=== PATIENT | male | born 1930 | race Caucasian/White ===

== ENCOUNTER → 2017-02-17 | Day surgery (SDC) | payer MEDICARE ==
[~2017-02-17] MED LIST: GENTAMICIN SULFATE 80 MG/2 ML VIAL ONE; LACTATED RINGER'S 1000 ML INJ 1,000 ML ONE; ONDANSETRON HCL 4 MG/2 ML VIAL IV PUSH ONE; PROPOFOL 200 MG/20 ML AMP IV ONE; SODIUM CHLORIDE 0.9% SOLN 100 ML (PAB) BAG IV ONE
--- NOTE | 2017-02-17 16:37 | TN ---
cc: LAZARA LANIER M.D. DATE OF SURGERY: 02/17/2017 PREOPERATIVE DIAGNOSIS Large bladder lesion (ICD - 10 code D41.4) POSTOPERATIVE DIAGNOSIS Large bladder lesion (ICD - 10 code D41.4) PROCEDURE: Transurethral resection of bladder tumor (TURBT) (CPT code 81571) INDICATIONS Mr. Cochran is an 86-year-old gentleman previously had prostate cancer and underwent retropubic radical prostatectomy with subsequent salvage or adjuvant radiotherapy in 1990 and has had undetectable PSA since. Recently had some gross painless hematuria an abnormality on CT scan. On local cystoscopy was found have a large sessile bladder tumor in the posterior bladder wall presents now for resection of this. FINDINGS: Findings are normal urethra, prostatic urethra is absent. The bladder neck is open with surgical changes. The trigone shows ureteral orifice normal size, shape and position effluxing clear urine. There is some trabeculation of the bladder. No diverticula and in the posterior bladder wall approximately 3 cm in diameter is a large sessile tumor was some nodularity to it and some small satellite lesions and adjacent to also some what appeared to be early signs of potential neoplastic process. The remainder of the bladder is spared of any of abnormalities. PROCEDURE IN DETAIL The procedure as well as risks and benefits were explained to the patient. Informed consent was obtained. The patient was taken major operative theater where he was placed in supine position. The patient was identified, as well as the operative site, a [place] time-out was formed in standard fashion. At this time general anesthetic and prophylactic intravenous antibiotics consisting of gentamicin 80 mg was administered after adequate anesthetic he was then placed in low dorsolithotomy position, prepped and draped usual sterile fashion. At this time a 22.5 Bulgarian cystoscope was placed into the urethra and bladder with the above findings. A 30 lens was exchanged for a 70 lens the entire bladder was systematically surveyed. At this time the cystoscope was removed and a 27 Bulgarian Watson resectoscope with a right-angle bladder loop was placed under direct vision using the InspireMD system and normal saline. A transurethral resection of the tumor was performed in standard fashion and elective Ellik evacuator was used to evacuate the bladder tumor tissue which was sent for final pathological evaluation. Care was taken to get the appropriate depth but not to perforate the bladder and at the end the case of the entire base of the bladder was fulgurated as well as some normal tissue just adjacent to it, until there was no grossly abnormal looking tissue. Also at the end the case, hemostasis was confirmed and the bladder was decompressed, the resectoscope removed. The patient tolerated procedure well, emerged from anesthetic without difficulty transferred to the recovery room in stable condition to be discharged home when criteria is met. There are no obvious complications. Please note that the tumor size was at least 3 cm in diameter. Please note that the tumor area resected was at least 3 cm in total diameter. MD EVERETTE Srinivasan/wilma /4:14 PM /4:32 PM
== END | disposition home or self-care (01) ==
LOC: ESDC 13:10
PROVIDERS: ATTEND Urology
DX: C67.9 Malignant neoplasm of bladder, unspecified (principal)
CPT/HCPCS: 00912; 52234; 88307; J1580; J2405; J3010; J7120